=== PATIENT | male | born 1965 | race African-American/Black ===

== ENCOUNTER → 2020-08-15 | Emergency (ER) | payer OTHER ==
[~2020-08-15] VITALS: Ht 180.3 cm; Wt 85.3 kg
[~2020-08-15] MED LIST: IBUPROFEN600 M1 ORAL; LIDODERM700 M1 TOPIC; ROBAXIN-750750 MG PO
--- NOTE | 2020-08-15 11:40 | NUR ---
ED Nurse Note: Pt ambulated to home c/o pain on right shoulder that "shoots down" through arm. Pt also reports intermittent right arm numbness. Pt has large "lump" on right shoulder blade which he was seen for by PMD. Pt is AOx4, calm and cooperative to care, VSS, on RA, afebrile on triage.
[2020-08-15 11:50] VITALS: BP 125/87
[2020-08-15 11:56] VITALS: BP 128/89
--- NOTE | 2020-08-15 11:56 | Emergency Room Report ---
History of Present Illness General Chief Complaint: Upper Extremity Injury Source: Patient Present Illness HPI Disclaimer: Please note that this report is being documented using [place] [employer] technology. This can lead to erroneous entry secondary to incorrect interpretation by the dictating instrument. HPI: 55-year-old male presents for evaluation of right shoulder pain. Symptoms present intermittently for the past several weeks. He notes a shooting sharp pain from his right shoulder down his bicep into his forearm. Pain exacerbated by raising his arm overhead and internally rotating. Cannot remember fall, injury, strain. No prior history of shoulder issues. Denies loss of sensation, numbness, tingling, limitation to range of motion. He has not been taking any medication for it. PMH: Denied PSH: Denied Allergies: Denied Social Hx: Denied Allergies: Coded Allergies: No Known Allergies (Unverified , 08/15/20) COVID-19 Screening Contact w/high risk pt: No Experienced COVID-19 symptoms?: No COVID-19 Testing performed SIZE TESTER: No Nursing Documentation-PMH Past Medical History: No Stated History Review of Systems All Other Systems: negative except mentioned in HPI Physical Exam Vital Signs Date Time Temp Pulse Resp B/P (MAP) Pulse Ox O2 Delivery O2 Flow Rate FiO2 08/15/20 11:34 97.9 89 20 125/87 (100) 94 Room Air General: Awake and alert, no acute distress HEENT: NC/AT. EOMI. Resp: Normal work of breathing Skin: Intact. No abrasions, laceration or rash over the exposed skin. There is a lipoma over the right scapula that is nontender without overlying skin changes. MSK: Normal tone and bulk. Moving all extremities. No obvious deformity. Patient is able to flex and extend at the shoulder as well as abduct past 120 degrees. Pain elicited around 90 degrees of abduction as well as with internal rotation. Davis test for impingement is positive. There is intact sensation to light touch over the dermatomes of lower extremity. No limitation in range of motion of the elbow, wrist or digits. Full 555 strength at the digits, wrist, elbow and shoulder. Neuro: Awake and alert. Mentating appropriately Medical Decision Making Diagnostic Impression: Primary Impression: Shoulder impingement syndrome Additional Impression: Shoulder pain ER Course This a 55-year-old male presenting for evaluation of shoulder pain. Differential includes was not limited to capsular adhesion, rotator cuff injury, strain, sprain, impingement syndrome, osteoarthritis among others. Patient's exam is most consistent with an impingement syndrome and possible rotator cuff injury. Will treat with NSAIDs, exercise and refer to his PMD. I instructed him to ask his PMD for referral to physical therapy and orthopedic surgery evaluation. He is neurologically intact. No significant limitation of range of motion or history of trauma to suggest acute bony injury. Do not believe he requires emergent labs or imaging at this time. Patient will follow up with his PMD and return with new or worsening symptoms. He understands and agrees with the treatment plan. Last Vital Signs Date Time Temp Pulse Resp B/P (MAP) Pulse Ox O2 Delivery O2 Flow Rate FiO2 08/15/20 11:50 97.9 20 125/87 94 Room Air 08/15/20 11:34 89 Disposition: HOME, SELF-CARE Condition: Stable Scripts Lidocaine Patch* (Lidoderm Patch*) 1 Each Adh..patch 1 PATCH TOPIC DAILY, #7 PATCH 0 Refills Patch(es) may remain in place for up to 12 hours in any 24-hour period. Prov: Fabian Bonilla MD 08/15/20 Methocarbamol* (ROBAXIN-750*) 750 Mg Tablet 750 MG PO QID, #28 TAB 0 Refills Prov: Fabian Bonilla MD 08/15/20 Ibuprofen* (MOTRIN*) 600 Mg Tablet 600 MG ORAL Q6H PRN for For Pain, #30 TAB 0 Refills Prov: Fabian Bonilla MD 08/15/20 Patient Instructions: Impingement Syndrome, Rotator Cuff, Bursitis With Rehab- [facility] Additional Instructions: Follow-up with your primary care doctor to discuss your recurrent shoulder pain. As for referral to physical therapy and orthopedic surgery. Take the medication as prescribed. Return to the emergency department new or worsening symptoms. Fabian Bonilla MD Aug 15, 2020 11:56
--- NOTE | 2020-08-15 11:56 | NUR ---
ER DISCHARGE NOTE: Patient is cleared to be discharged per ERMD, pt is aox4, on room air, with stable vital signs. pt was given dc and prescription instructions, pt was able to verbalize understanding, pt id band removed. pt is able to ambulate with steady gait. pt took all belongings.
== END | disposition home or self-care (01) ==
LOC: EMR 11:40
DX: M75.41 Impingement syndrome of right shoulder (principal)
CPT/HCPCS: 99282